=== PATIENT | female | born 1980 | race Caucasian/White ===

== ENCOUNTER 2022-10-01 14:54 | Outpatient (CLI) | payer OTHER, SELFPAY ==
--- NOTE | 2022-10-01 14:40 | CRLHL7_ITS ---
For Patients: As a result of the Cures Act, medical imaging exams and procedure reports are released immediately into your electronic medical record. You may view this report before your referring provider. If you have questions, please contact your health care provider. BILATERAL SCREENING MAMMOGRAM WITH COMPUTER-AIDED DETECTION AND TOMOSYNTHESIS TECHNIQUE: CC and MLO views were obtained. These mammographic images have been obtained using full-field digital technique. These mammographic images were interpreted with the benefit of computer-aided detection. Breast tomosynthesis was used in this interpretation. COMPARISON FILM: None. Baseline study. FINDINGS: The breasts are heterogeneously dense, which may obscure small masses. IMPRESSION: There is no radiographic evidence for malignancy. ASSESSMENT: BI-RADS Category 1: Negative RECOMMENDATION: Routine screening mammogram in 1 year. A lay language report of this examination will be provided to the patient. RAY MARTINEZ M.D. Diagnostic/Nuclear Medicine Radiologist [email or web address] CRYSTAL:clifford Transcribed: 10/02/2022, 3:[address]/Dictated by: Ray Martinez MD @ 10/02/2022 8:10:00 AM (Electronically Signed)
== END 2022-10-01 14:55 | disposition home or self-care (01) ==
LOC: MAMMO 14:56
PROVIDERS: PCP Family Medicine; Visit Provider Nurse Practitioner Family
DX: Z12.31 Encounter for screening mammogram for malignant neoplasm of breast (principal); R92.2 Inconclusive mammogram
CPT/HCPCS: 77063; 77067; T1013

== ENCOUNTER 2023-11-29 08:33 | Outpatient (CLI) | payer OTHER, SELFPAY ==
--- NOTE | 2023-11-29 08:45 | MM_ITS ---
Patient: KENDALL KAYE Facility:?[facility] Patient ID:?[id number] Site Patient ID:?[id number]. Site :?[id number] Study:?XRay-Breast Bilateral 3D-11/29/2023 9:05:34 AM Ordering Physician:[place] Final Report: BILATERAL DIGITAL SCREENING MAMMOGRAM WITH TOMOSYNTHESIS AND COMPUTER-AIDED DETECTION CLINICAL HISTORY: Routine screening exam. COMPARISON: 10/01/2022. TECHNIQUE: Digital mammogram in CC and MLO projections including computer-aided detection (CAD). Tomosynthesis utilized. BREAST COMPOSITION: There are areas of scattered fibroglandular density. FINDINGS: RIGHT Breast: Nodular density is present within the subareolar breast 2 cm from the nipple. Probable cyst. LEFT Breast: No suspicious findings. IMPRESSION: RIGHT breast asymmetry/mass. RECOMMENDATIONS: Additional mammographic views of the RIGHT breast including 3D spot compression CC/MLO. RIGHT breast ultrasound may also be required. BI-RADS Category 0: Incomplete: Need Additional Imaging Evaluation and/or Prior Mammograms for Comparison [facility] will contact the patient for follow-up. A lay language report of this examination will be provided to the patient. Dictated by Dhaval Wong MD @ 11/29/2023 10:46:15 AM jj/Dictated by: Dhaval Wong MD @ 11/29/2023 10:46:00 AM Signed by:?Dhaval Wong MD @11/29/2023 11:40:29 AM (Electronic Signature)
== END 2023-11-29 08:34 | disposition home or self-care (01) ==
LOC: MAMMO 08:35
PROVIDERS: PCP Family Medicine; Visit Provider Physician Assistant
DX: Z12.31 Encounter for screening mammogram for malignant neoplasm of breast (principal); N63.10 Unspecified lump in the right breast, unspecified quadrant
CPT/HCPCS: 77063; 77067

== ENCOUNTER 2023-12-20 08:26 | Outpatient (CLI) | payer OTHER, SELFPAY ==
--- OUTSIDE RECORDS SUMMARY | 2023-12-20 08:33 | XMS_ITS | Continuity of Care Document ---
Author Name Unknown Address [address] [place] [address] Phone [phone] Organization [facility] Address [address] [place] [address] Assessment Encounter Date Assessment Date Assessment LastModified by Organization Details LastModified Time 12/09/2023 12/09/2023 IUD removal [email or web address] Not available 11:33:30 Plan of Treatment Reminders Order Date Submit Date Provider Last Modified By Organization Details Last Modified Time Details Appointments Any 2023 01:30P Parth Curran MD Not available Not available Not available Lab None record ed. Referral gyneco logist referr al - Needs remova l and reinse rtion of IUD; unable to find string s. Transv aginal U/S has been ordere d as well. 2023 024 [email or web address] Not available 12/11/2023 13:03:34 Procedures None record ed. Surgeries None record ed. Imaging US, transv aginal - Need to locate and remove IUD. Unable to find string s 2023 024 [email or web address] Not available 12/17/2023 18:47:59 Medication Orders None record ed. Patient TargetsNo targets recorded. Patient InstructionsNo instructions recorded. Reason for Referral Physical Therapist Referral for Pain of left hip joint 1 month history of atraumatic left hip pain. Worsens with prolonged sitting. Patient is concerned that she has bad posture and uneven leg lengths. Please evaluate and treat. 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 Transvaginal U/S has been ordered as well. Referring Physician: Luanne Harrison, Family Medicine, Encounter Date: 12/09/2023 Problems Name Status Onset Date Resolution Date Notes Provider Name and Address Organization Details Recorded Time History of gestational diabetes mellitus Active 03/06/20 22 Gamaliel Osborne MD [address] [place], [address] , [facility] [employer] [facility] 03/06/2022 20:06:44 Onychomycosis of toenails Active 02/13/20 23 Gamaliel Osborne MD [address] [place], [address] , [facility] [employer] [facility] 02/12/2023 17:35:03 Problem Notes None recorded. Medical Equipment None Reported. Allergies No known drug allergies Medications Name Sig Start Date Stop Date Status Note LastModified by Organization Details LastModified Time ketoconazol e 2 % shampoo 03/06 completed Not Available Not Available Not Available triamcinolo ne acetonide 0.5 % topical cream APPLY A THIN LAYER TO THE AFFECTED AREA(S) BY TOPICAL ROUTE 2 TIMES PER DAY 02/13 completed Not Available Not Available Not Available naproxen 250 mg tablet TAKE ONE TABLET BY MOUTH TWICE A DAY 03/06 completed Not Available Not Available Not Available omeprazole 40 mg capsule,del ayed release TAKE ONE CAPSULE BY MOUTH EVERY DAY NEEDED 02/13 completed Not Available Not Available Not Available terbinafine HCl 250 mg tablet TAKE ONE TABLET BY MOUTH EVERY DAY active Not Available Not Available No t Available hydrocortis one 2.5 % topical cream APPLY A THIN LAYER TO THE AFFECTED AREA(S) BY TOPICAL ROUTE 2 TIMES PER DAY NEEDED 05/08 completed Not Available Not Available Not Available Florajen Acidophilus 20 billion cell capsule TAKE ONE CAPSULE BY MOUTH EVERY DAY DIRECTED active Not Available Not Available No t Available Vitals Date Recorded Body height Body mass index (BMI) Body weight Provider Name and Address Organization Details Last Updated DateTime 12/09/2023 149.86 cm 43.4 kg/m2 76668.36 g ANKUR De La Rosa [address] [place], [address], [facility] 12/09/2023 12:22:44 Social History Question Answer Notes LastModified by Organizat ion Details LastModified Time Are You Currently Employed? Yes [employer] Information not available 05/08/2022 Do You Feel Safe At Home? Yes Information not available 03/06/2022 Sex: Female Functional Status None recorded. Mental Status None recorded. Family History Relationship Description Onset Age of this Age Resolved Age Notes Mother Diabetes mellitus Notes:father of unknown causes (poss heart disease), several siblings have diabetes and high cholesterols Medical History No medical history recorded. Gynecological HistoryNo gynecological history recorded. Obstetrics History GPAL:G 0 P 0 0 0 0 Past Encounters Encounter ID Performer Location Encounter Start Date Encounter Closed Date Diagnosis/Indication Diagnosis SNOMED-CT Code [id number] ANKUR De La Rosa [facility] [address] [place] [address] 12/09/2023 10:29:24 12/09/2023 11:47:51 Family planning surveillance [id number] Surveillan ce of intrauterine device contraception done [id number] 04 Health Concerns Section Related Observation LastModified by Organization Detai ls LastModified Time None Recorded Concern Status LastModified by Organization Details LastModified Time None Recorded Payers Encounter Date Sequence Insurance Name Policy Number Policy Bethea Covered Member ID Bethea Member ID Guarantor Name 12/09/2023 SLIDING FEE SCHEDULE - DISCOUNT Radha Mayers Notes Date Note Type Note Provider Name and Address Organization Details Recorded Time 12/09/2023 text/html HPI Notes: Pt he re today for family planning counseling Has IUD in place currently. Had Mirena IUD inserted in 2013 and needs it removed as it is overdue. She had thought it was good for 10 years. Would like to discuss other BC options Has liked the IUD, has not been experiencing any periods since using it. Has questions about available IUDs, as well as the implant Beside the IUD, has used contraceptive patch Does not want any more children (G3, P3) Did have pap smear through the [facility] At that time, they were unable to locate her IUD strings Is sexually active with 1 partner No vaginal sxs/concerns. Endorses occasional pelvic cramping but nothing significant Is concerned about any BC method that might cause weight gain. LMP: Not having periods 2/2 Mirena IUD Preventative care: - Cervical Ca screenin11/26/2023. - Breast Ca screening: mammogram pending, last done September 2022 ANKUR De La Rosa [address] [place], [address], [facility] 12/09/2023 12:22:56 OBGyn Episode No OBEpisode recorded.
--- OUTSIDE RECORDS SUMMARY | 2023-12-20 08:33 | XMS_ITS | Data Portability ---
Author Name Unknown Address [address] [place] [address] Phone [phone] Organization [place] - Delfino porras [facility] Address [address] [place] [address] [place] [address] Assessment Encounter Date Assessment Date Assessment LastModified by Organization Details LastModified Time 12/09/2023 12/09/2023 IUD removal [email or web address] Not available 11:33:30 Plan of Treatment Reminders Order Date Submit Date Provider Last Modified By Organization Details Last Modified Time Details Appointments Any 30 2023 01:30P Parth Curran MD Not available Not available Not available Lab pap, LB + reflex HR HPV 2021 [facility], [address] [place] [address], [address], 08/08/2022 17:12:15 lipid panel, serum 2021 [facility], [address] [place] [address], [address], 01/02/2023 10:14:27 hemogl obin A1C/he moglob in total, QN, blood 2021 [facility], [address] [place] [address], [address], 01/02/2023 10:13:03 CBC 2021 022 ABRAM Not available 04/23/2022 13:31:23 CMP, serum or plasma 2021 022 ABRAM Not available 04/23/2022 10:40:59 lipid panel, serum 2021 022 ABRAM Not available 05/08/2022 15:56:40 hemogl obin A1C/he moglob in total, QN, blood 2021 022 ABRAM Not available 04/23/2022 13:31:22 Referral gyneco logist referr al - Needs remova l and reinse rtion of IUD; unable to find string s. Transv aginal U/S has been ordere d as well. 2023 024 [email or web address] Not available 12/11/2023 13:03:34 physic al therap ist referr al - 1 month histor y of atraum atic left hip pain. Worsen s with prolon ged francisca castroKerri rees is concer ori that she has bad postur e and uneve n leg length s. Please evalua te and treat. 2020 021 [email or web address] Not available 01/02/2021 12:56:55 Procedures None record ed. Surgeries None record ed. Imaging US, transv aginal - Need to locate and remove IUD. Unable to find string s 2023 024 [email or web address] Not available 12/17/2023 18:47:59 MAMMO, screen ing, bilate ral 2021 022 ABRAM Not available 10/02/2022 17:38:55 Medication Orders terbin afine HCl 250 mg tablet 2022 023 [facility], [address] [place], [address], 02/13/2023 11:31:11 Floraj en Acidop hilus 20 billio n cell capsul e 2022 023 [facility], [address] [place], [address], 02/12/2023 18:52:17 terbin afine HCl 250 mg tablet 2021 022 [facility] [address], [address], 05/08/2022 18:25:48 omepra zole 40 mg capsul e,kash yed releas e [address], [address], 02/13/2023 10:42:20 triamc inolon e aceton sara 0.5 % topica l cream [address], [address], 02/13/2023 10:41:59 omepra zole 40 mg capsul e,kash yed releas e [address], [address], 02/13/2023 10:42:20 terbin afine HCl 250 mg tablet [address], [address], 03/06/2022 18:39:14 naprox en 250 mg tablet [address], [address], 03/06/2022 18:02:00 terbin afine HCl 250 mg tablet 2020 021 mert Not available 01/17/2021 16:57:54 Patient TargetsNo targets recorded. Patient Instructions Encounter Date Encounter Id Patient Instructions Last Modified By Organization Details Last Modified Time 02/12/2023 [id number] take medication for nails for another month and stop, resume if fungus reappears, continue to keep weight down mert Not available 02/13/2023 10:41:21 05/08/2022 [id number] continue to diet and exercise mert Not available 05/08/2022 18:41:56 03/06/2022 [id number] eat three meals a day, try to decr size of meals, avoid fatty foods that agg gall bladder mert Not available 03/06/2022 20:15:12 Reason for Referral Physical Therapist Referral for Pain of left hip joint 1 month history of atraumatic left hip pain. Worsens with prolonged sitting. Patient is concerned that she has bad posture and uneven leg lengths. Please evaluate and treat. 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 Transvaginal U/S has been ordered as well. Referring Physician: Luanne Harrison, Family Medicine, Encounter Date: 12/09/2023 Results Created Date Observation Date Name Description Value Unit Range Abnormal Flag LastModifiedBy Organization Detail LastModifiedTime 05/08/2022 lipid panel , serum cholesterol 156 normal Not Available Not Available 05/08/2022 15:56:40 05/08/2022 lipid panel , serum triglyceride s 71 normal Not Available Not Available 15:56:40 05/08/2022 lipid panel , serum HDL 60 normal Not Available Not Available 04/11 15:56:40 05/08/2022 lipid panel , serum LDL 82 normal Not Available Not Available 04/11 15:56:40 05/08/2022 CBC cholesterol 156 normal Not Avai lable Not Available 04/23/2022 13:31:23 05/08/2022 CBC triglyceride s 71 normal Not Available Not Available 13:31:23 05/08/2022 CBC HDL 60 normal Not Available Not Available 04/23/2022 13:31:23 05/08/2022 CBC LDL 82 normal Not Available Not Available 04/23/2022 13:31:23 05/08/2022 CMP, serum or plasm a cholesterol 156 normal Not Available Not Available 04/23/2022 13:31:23 05/08/2022 CMP, serum or plasm a triglyceride s 71 normal Not Available Not Available 13:31:23 05/08/2022 CMP, serum or plasm a HDL 60 normal Not Available Not Available 04/09 13:31:23 05/08/2022 CMP, serum or plasm a LDL 82 normal Not Available Not Available 04/09 13:31:23 05/08/2022 hemog lobin A1C/h emogl obin total , QN, blood cholesterol 156 normal Not Available Not Available 04/23/2022 11:22:32 05/08/2022 hemog lobin A1C/h emogl obin total , QN, blood triglyceride s 71 normal Not Available Not Available 11:22:32 05/08/2022 hemog lobin A1C/h emogl obin total , QN, blood HDL 60 normal Not Available Not Available 04/09 11:22:32 05/08/2022 hemog lobin A1C/h emogl obin total , QN, blood LDL 82 normal Not Available Not Available 04/09 11:22:32 01/02/20 23 01/01/2023 lipid panel , serum hemoglobin A1C 5.35 Not Available [address], [address], 01/02/2023 10:14:27 01/02/20 23 01/01/2023 lipid panel , serum total cholesterol 166 Not Available [address], [address], 01/02/2023 10:14:27 01/02/20 23 01/01/2023 lipid panel , serum triglyceride s 59 Not Available [address], [address], 01/02/2023 10:14:27 01/02/20 23 01/01/2023 lipid panel , serum HDL 89 Not Available [address], [address], 01/02/2023 10:14:27 01/02/20 23 01/01/2023 lipid panel , serum LDL 65 Not Available [address] [place], [address], 01/02/2023 10:14:27 01/02/20 23 01/01/2023 hemog lobin A1C/h emogl obin total , QN, blood hemoglobin A1C 5.35 Not Available [address], [address], 01/01/2023 18:10:02 01/02/20 23 01/01/2023 hemog lobin A1C/h emogl obin total , QN, blood total cholesterol 166 Not Available [address], [address], 01/01/2023 18:10:02 01/02/20 23 01/01/2023 hemog lobin A1C/h emogl obin total , QN, blood triglyceride s 59 Not Available [address], [address], 01/01/2023 18:10:02 01/02/20 23 01/01/2023 hemog lobin A1C/h emogl obin total , QN, blood HDL 89 Not Available [facility] [address] [place] [address], [address], 01/01/2023 18:10:02 01/02/20 23 01/01/2023 hemog lobin A1C/h emogl obin total , QN, blood LDL 65 Not Available [facility] [address] [place] [address], [address], 01/01/2023 18:10:02 10/02/19 23 10/01/2022 MAMMgladis Lynne bilat eral No observ ation record ed. [facility] Radiology Department [address] [place], [address], 10/04/2022 09:06:59 Result Notes None recorded. Problems Name Status Onset Date Resolution Date Notes Provider Name and Address Organization Details Recorded Time History of gestational diabetes mellitus Active 03/06/20 22 Gamaliel Osborne MD [address] [place], [address] , [facility] 03/06/2022 20:06:44 Onychomycosis of toenails Active 02/13/20 23 Gamaliel Osborne MD [address] [place], [address] , [facility] 02/12/2023 17:35:03 Problem Notes None recorded. Procedures Surgical History None recorded. Imaging Results Imaging Date Name Status LastModified by Organiz ation Details LastModified Time 10/01/2022 MAMMO, screening, bilateral completed [facility] Radiology Department [address] [place], [address], 10/04/2022 09:06:59 Procedure Notes None recorded. Medical Equipment None Reported. [...] No t Available Vitals Date Recorded Body weight Body mass index (BMI) Body height Provider Name and Address Organization Details Last Updated DateTime 01/02/2021 94474.47 g 40.4 kg/m2 149.86 cm Soniaaamir Fernandez NP [address] [place], [address], [facility] 01/02/2021 12:21:38 Date Recorded Body weight Systolic blood pressure Diastolic blood pressure Provider Name and Address Organization Details Last Updated DateTime 03/06/2022 59860.44 g 125 mm[Hg] 79 mm[Hg] Gamaliel Osborne MD [address] [place], [address], [facility] 03/06/2022 20:05:49 Date Recorded Body weight Provider Name an d Address Organization Details Last Updated DateTime 05/08/2022 93116.47 g Parth Sigala [address] [place], [address] 05/08/2022 18:30:39 Date Recorded Body height Body mass index (BMI) Body weight Body temperature Systolic blood pressure Diastolic blood pressure Provider Name and Address Organization Details Last Updated DateTime 2 149.86 cm 39.4 kg/m2 93847.5 1 g 98.2 [degF] 105 mm[Hg] 60 mm[Hg] [facility] 2 10:11:41 Date Recorded Body height Body mass index (BMI) Body weight Heart rate Systolic blood pressure Diastolic blood pressure Provider Name and Address Organization Details Last Updated DateTime 3 149.86 cm 39.4 kg/m2 78284.1 5 g 55 /min 112 mm[Hg] 59 mm[Hg] Jenifer [facility] 3 18:26:16 Date Recorded Body height Body mass index (BMI) Body weight Provider Name and Address Organization Details Last Updated DateTime 12/09/2023 149.86 cm 43.4 kg/m2 92511.36 g ANKUR De La Rosa [address] [place], [address], [facility] 12/09/2023 12:22:44 Social History Question Answer Notes [...] Encounter Closed Date Diagnosis/Indication Diagnosis SNOMED-CT Code [id number] Sonia Fernandez NP [facility] [address] [place] [address] 01/02/2021 10:44:12 01/02/2021 17:31:37 Pain of left hip joint 9523179095236 00 [id number] Gamaliel Osborne MD [facility] [address] [place] [address] 01/16/2021 15:27:49 01/16/2021 17:53:33 Muscle pain 30839784 63218 Gamaliel Osborne MD [facility] [address] [place] [address] 03/06/2022 17:38:59 03/06/2022 18:43:13 Onychomycosis of toenails 893220190 Renewal of prescription 662054480 Prediabetes 360827661 09089 Gamaliel Osborne MD [facility] [address] [address] 05/08/2022 17:08:41 05/08/2022 18:05:17 Localized eruption of skin 786583150 Renewal of prescription 734891242 Onychomyco sis of toenails 236085069 76993 [facility] [address] [place] [address] 07/05/2022 10:02:39 07/05/2022 11:18:01 Adult health examination 492655635 Gynecologi c examination 34158566 Uterine prolapse 9561934 5 [place] sp ots of vulva 878183957 Screening mammography 24 430771 36592 Gamaliel Osborne MD [facility] [address] [place] [address] 02/12/2023 18:18:44 02/12/2023 18:51:40 History of gestational diabetes mellitus 464989615 Onychomyco sis of toenails 455912722 Localized eruption of skin 881844821 13272 ANKUR De La Rosa [facility] [address] [place] [address] 12/09/2023 10:29:24 12/09/2023 11:47:51 Family planning surveillance 450971346 Surveillan ce of intrauterine device contraception done [id number] 04 Health Concerns Section Related Observation LastModified by Organization Detai ls LastModified Time None Recorded Concern Status LastModified by Organization Details LastModified Time None Recorded Advance Directives Directive None Recorded Payers Encounter Date Sequence Insurance Name Policy Number Policy Bethea Covered Member ID Bethea Member ID Guarantor Name 12/09/2023 SLIDING FEE SCHEDULE - DISCOUNT Radha Mayers 02/12/2023 SLIDING FEE SCHEDULE - DISCOUNT Radha Mayers 07/05/2022 [employer] SCREENING PROGRAM - [place] [employer] Radha Mayers [id number] Radha Mayers 05/08/2022 SLIDING FEE SCHEDULE - DISCOUNT Radha Mayers 03/06/2022 SLIDING FEE SCHEDULE - DISCOUNT Radha Mayers 01/16/2021 SLIDING FEE SCHEDULE - DISCOUNT Radha Mayers 01/02/2021 SLIDING FEE SCHEDULE - DISCOUNT Radha Mayers Notes Date Note Type Note Provider Name and Address Organization Details Recorded Time 01/02/2021 text/html HPI Notes: Hip(s ) Reported by patient. Location: left Severity: pain level 7/10; Pain comes and goes. Pain is better with exertion. Duration: date of onset:; 1 months Timing: abrupt; Began at left knee; when she sits for a long time, feels like she doesn't have any strength in her left side after prolonged sitting. Has some days without pain; taking Advil 1-2x/week. Context: cannot identify; atraumatic Alleviating Factors: NSAIDs Aggravating Factors: Inactivity. Associated Symptoms: no swelling; no redness; no warmth; no ecchymosis; no fever; no chills Phone visit (patient unable to come in person). CC today is deep pain in left hip x 1 month. Foreign [employer] interpreting via [employer]. 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 Has been able to work despite pain; in fact, pain is better when she is active. Pain doesn't interfere with sleep. Sometimes has right arm pain that makes it hard to sleep. No fevers, chills, no redness or swelling of joint. Sometimes will feel a little warm. Trend of pain is stable; not worsening or improving. Pain is worse when sitting down for a long time. Not worse when waking up. Stairs are easy. Weight has been stable for the past year. She reports being quite active: likes walking. Pain has not prevented from her from exercising. Feels otherwise healthy. Sonia Fernandez NP [address] [place], [address], [facility] [employer] 01/02/2021 13:24:47 01/16/2021 text/html HPI Notes: sever al days of aching in right arm below elbow and fingers, using a NSAID from [place] and improving Gamaliel Osborne MD [address] [place], [address], [facility] [employer] 01/16/2021 18:06:08 07/05/2022 text/html HPI Notes: 41 y. o. F presents for [facility] visit Last mammogram date and result: Has never had Personal history of breast issues or concerns: Right breast pain above right breast like a bite. Current Breast ROS: denies breast lumps, nipple discharge/itching, rash, change in appearance Family history of breast or ovarian cancer-no Breast self awareness discussed Last pap date/result: Unsure of date History of abnormal pap smears: No Gynecologic history: LMP: Does not have Gynecologic ROS: denies vaginal discharge, itching, odor, irritation, pelvic pain, abnormal bleeding, but does not external bumps and something internally. Contraception: +Mirena IUD , 2 casearas She has been losing wt with rylie, basketball, and gym use. Denies depressive or anxiety symptoms. DARCI POZO-BC [address] [place], [address], [facility] [employer] 07/05/2022 13:47:10 12/09/2023 text/html HPI Notes: Pt he re [...] [facility] Program at the [facility] [place] At that time, they were unable to [...] September 2022 ANKUR De La Rosa [address] [place], [address], [facility] 12/09/2023 12:22:56 OBGyn Episode No OBEpisode recorded.
--- NOTE | 2023-12-20 08:45 | MM_ITS ---
Patient: KENDALL KAYE Facility:?[facility] Patient ID:?[id number] Site Patient ID:?[id number] Site :?[id number] Study:?XRay-Breast Right 3D-12/20/2023 9:32:55 AM Ordering Physician:[place] Final Report: DIGITAL DIAGNOSTIC RIGHT MAMMOGRAM USING TOMOSYNTHESIS AND COMPUTER-AIDED DETECTION RIGHT BREAST ULTRASOUND CLINICAL HISTORY: RIGHT breast mass/asymmetry. COMPARISON: 11/29/2023, 10/01/2022. TECHNIQUE: Digital RIGHT mammogram in two projections. Tomosynthesis and CAD utilized. Real-time ultrasound imaging of RIGHT breast with imaging documentation. BREAST COMPOSITION: There are areas of scattered fibroglandular density. FINDINGS: 3D spot compression CC/MLO RIGHT breast mammogram images submitted. Persistent nodular density adjacent to the RIGHT nipple. No architectural distortion. No suspicious calcifications. Targeted RIGHT breast ultrasound performed at 2 o`clock 2 cm from the nipple. In this location, there is a circumscribed anechoic simple cyst measuring 15 x 9 x 14 millimeters. IMPRESSION: Benign cyst RIGHT breast 2 o`clock 2 cm from the nipple measuring 1.5 cm. No suspicious findings. No evidence of malignancy. RECOMMENDATIONS: Annual BILATERAL screening mammography. Results and recommendations discussed with the patient through an multigraph operator. BI-RADS Category 2: Benign A lay language report of this examination will be provided to the patient. Dictated by Dhaval oWng MD @ 12/20/2023 9:47:21 AM jj/Dictated by: Dhaval Wong MD @ 12/20/2023 9:47:00 AM Signed by:?Dhaval Wong MD @12/20/2023 11:05:18 AM (Electronic Signature)
--- NOTE | 2023-12-20 09:15 | US_ITS ---
Patient: KENDALL KAYE Facility:?[facility] Patient ID:?[id number] Site Patient ID:?[id number] Site :?1980 Study:?US-Breast Right DR PIMENTEL TO READ-12/20/2023 9:15:23 AM Ordering Physician:?WOOD BOLAND Final Report: PLEASE SEE DIGITAL DIAGNOSTIC RIGHT MAMMOGRAM PERFORMED SAME DAY CRL:alanis thapa/Dictated by: Dhaval Pimentel MD @ 12/20/2023 9:47:00 AM Signed by:?Dhaval Pimentel MD @12/20/2023 11:05:17 AM (Electronic Signature)
== END 2023-12-20 08:27 | disposition home or self-care (01) ==
PROVIDERS: PCP Family Medicine; Visit Provider Physician Assistant
DX: N63.10 Unspecified lump in the right breast, unspecified quadrant (principal); N60.01 Solitary cyst of right breast; R92.8 Other abnormal and inconclusive findings on diagnostic imaging of breast
CPT/HCPCS: 76642; 77065; T1013; G0279

== ENCOUNTER 2023-12-25 14:59 | Outpatient (CLI) | payer SELFPAY ==
--- NOTE | 2023-12-25 15:00 | US_ITS ---
Patient: KENDALL KAYE Facility:?[facility] Patient ID:?[id number] Site Patient ID:?[id number]. Site :?1980 Study:?US-Pelvis PELVIS TV-12/25/2023 3:34:55 PM Ordering Physician:PRISCILLA FERGUSON NP Final Report: CLINICAL HISTORY: IUD check TECHNIQUE: 2D norwood scale and color Doppler images were acquired of the pelvis using a transvaginal approach. FINDINGS: On transvaginal imaging, the myometrium has a normal uniform echotexture. Intrauterine device is present in good position within the endometrial canal. Uterus measures 8.9 x 4.4 x 5.9 cm. The left ovary measures 2.6 x 1.7 x 2.4 cm in size and the right ovary measures 3.3 x 2.5 x 2.3 cm. The ovaries demonstrate normal arterial and venous blood flow on color Doppler analysis. There are no suspicious fluid collections within the cul-de-sac. IMPRESSION: Normal position of the IUD within the endometrial canal. Dictated by Dhaval Wong MD @ 12/26/2023 9:52:41 AM Signed by:?Dhaval Wong MD @12/26/2023 9:52:41 AM (Electronic Signature)
== END 2023-12-25 15:00 | disposition home or self-care (01) ==
LOC: US 15:00
PROVIDERS: PCP Family Medicine; Visit Provider Nurse Practitioner Family
DX: Z30.431 Encounter for routine checking of intrauterine contraceptive device (principal)
CPT/HCPCS: 76830; T1013

== ENCOUNTER 2025-03-26 07:39 | Outpatient (CLI) | payer MEDICAID, SELFPAY ==
--- NOTE | 2025-03-26 07:45 | CRLHL7_ITS ---
For Patients: As a result of the Century Cures Act, medical imaging exams and procedure reports are released immediately into your electronic medical record. You may view this report before your referring provider. If you have questions, please contact your health care provider. DIGITAL DIAGNOSTIC BILATERAL MAMMOGRAM USING TOMOSYNTHESIS AND COMPUTER-AIDED DETECTION LEFT BREAST ULTRASOUND CLINICAL HISTORY: LEFT breast lump. COMPARISON: 10/01/2022, 12/20/2023, 11/29/2023. TECHNIQUE: Digital BILATERAL mammogram in four projections with computer-aided detection. Tomosynthesis was used in this interpretation. Real-time ultrasound imaging of LEFT breast with imaging documentation. Scanning was performed by both the technologist and the radiologist. BREAST COMPOSITION: The breasts are heterogeneously dense, which may obscure small masses. FINDINGS: 3D CC/MLO BILATERAL mammogram images submitted. Irregular mass in the upper outer quadrant is present corresponding to the area of palpable concern. Stable cyst within the retroareolar RIGHT breast. Targeted LEFT breast ultrasound performed. In this location, there is an irregular solid hypoechoic mass at 2 o`clock 6 cm from the nipple which measures 3.0 x 2.3 x 3.6 cm. Prominent LEFT axillary lymph node is present with the cortex measuring 4.2 millimeters. This lymph node measures 1.4 x 1.1 x 2.0 cm. IMPRESSION: Suspicious mass LEFT breast 2 o`clock 6 cm from the nipple measuring 3.0 x 2.3 x 3.6 cm. Suspicious LEFT axillary lymph node measuring 1.4 x 1.1 x 2.0 cm. RECOMMENDATIONS: Ultrasound-guided biopsy of the LEFT breast mass and LEFT axillary lymph node. A lay language report of this examination will be provided to the patient. BI-RADS Category 4: Suspicious Dictated by Dhaval Wong MD @ 03/26/2025 9:18:25 AM jj/Dictated by: Dhaval Wong MD @ 03/26/2025 9:18:00 AM (Electronically Signed)
--- NOTE | 2025-03-26 08:15 | CRLHL7_ITS ---
For Patients: As a result of the Cures Act, medical imaging exams and procedure reports are released immediately into your electronic medical record. You may view this report before your referring provider. If you have questions, please contact your health care provider. SEE DIGITAL DIAGNOSTIC BILATERAL MAMMOGRAM PERFORMED SAME DAY CRL:alanis thapa/Dictated by: Dhaval Wong MD @ 03/26/2025 9:18:00 AM (Electronically Signed)
== END 2025-03-26 07:40 | disposition home or self-care (01) ==
LOC: MAMMO 07:40
PROVIDERS: PCP Family Medicine; Visit Provider Physician Assistant
DX: N63.20 Unspecified lump in the left breast, unspecified quadrant (principal); R92.333 Mammographic heterogeneous density, bilateral breasts; R59.0 Localized enlarged lymph nodes
CPT/HCPCS: 76642; 77066; T1013; G0279

== ENCOUNTER 2025-04-07 11:06 | Outpatient (CLI) | payer MEDICAID, SELFPAY ==
--- NOTE | 2025-04-07 11:15 | CRLHL7_ITS ---
For Patients: As a result of the Century Cures Act, medical imaging exams and procedure reports are released immediately into your electronic medical record. You may view this report before your referring provider. If you have questions, please contact your health care provider. ULTRASOUND-GUIDED LEFT AXILLARY LYMPH NODE BIOPSY AND BIOPSY MARKER PLACEMENT INDICATION: LEFT breast mass. Abnormal-appearing LEFT axillary lymph node. Ultrasound-guided biopsy and clip placement ordered. FINDINGS: Informed consent was obtained through the aid of a Persian-speaking retail business analyst. Benefits and risks were discussed. Risks included pain, bleeding, infection, and the possibility of an unsuccessful or nondiagnostic procedure. A post procedure clip placement and a post procedure mammogram were also discussed with the patient. The patient agreed to proceed. [place] protocol was followed. TIME-OUT conducted just prior to starting procedure confirmed patient identity, site/side, procedure, patient position, and availability of correct equipment. Pause for cause was performed. Utilizing sterile technique and 1 percent lidocaine for local anesthetic, an 18-gauge Temno biopsy needle was advanced into the LEFT axillary lymph node which demonstrates a slightly thickened minimally irregular cortex. Five passes were made with an 18-gauge Temno needle. The patient tolerated the biopsy well. No immediate complications. A HydroMARK clip was placed into the lymph node at the edge of the cortex. A post procedure mammogram was performed demonstrating the clip at the periphery of this lymph node. IMPRESSION: Technically successful ultrasound-guided biopsy of a LEFT axillary lymph node. Final pathology is pending. ACR not applicable Dictated by: Parth Holbrook MD @04/07/2025 12:37:39 PM jj/Dictated by: Parth Holbrook MD @ 04/07/2025 12:37:00 PM (Electronically Signed)
--- NOTE | 2025-04-07 11:15 | CRLHL7_ITS ---
For Patients: As a result of the Century Cures Act, medical imaging exams and procedure reports are released immediately into your electronic medical record. You may view this report before your referring provider. If you have questions, please contact your health care provider. ULTRASOUND-GUIDED LEFT BREAST BIOPSY AND POST-BIOPSY MAMMOGRAM FOR CLIP PLACEMENT INDICATION: Palpable solid LEFT breast mass 2 o`clock position 6 cm from the nipple measuring 3.0 x 2.3 x 3.6 cm. Ultrasound-guided biopsy, clip placement, and postprocedure mammogram ordered. FINDINGS: Informed consent was obtained through the aid of a Mongolian-speaking agriculture consultant. The benefits and risks of the procedure were discussed. The risks included pain, bleeding, infection, and the possibility of an unsuccessful or nondiagnostic procedure. The placement of a post biopsy clip and a postprocedure mammogram were also discussed. The patient agreed to proceed. [place] protocol was followed. TIME-OUT conducted just prior to starting procedure confirmed patient identity, site/side, procedure, patient position, and availability of correct equipment. Pause for cause was performed. Utilizing sterile technique and 1 percent lidocaine for local anesthetic, a 14-gauge Bard biopsy gun was advanced into the lesion at the 2 o`clock position 6 cm from the nipple. Five cores were obtained without significant complication (the patient experienced some pain with the first 2 biopsies). A postprocedure clip was placed. The postprocedure mammogram demonstrates the clip within the periphery of the biopsied mass. IMPRESSION: Technically successful ultrasound-guided biopsy and clip placement in the left breast mass at 2 o`clock position 6 cm from the nipple. The final pathology is pending. ACR not applicable Dictated by: Parth Holbrook MD @04/07/2025 12:34:37 PM alanis/Dictated by: Parth Holbrook MD @ 04/07/2025 12:34:00 PM (Electronically Signed)
--- NOTE | 2025-04-07 11:50 | CRLHL7_ITS ---
For Patients: As a result of the Cures Act, medical imaging exams and procedure reports are released immediately into your electronic medical record. You may view this report before your referring provider. If you have questions, please contact your health care provider. SEE ULTRASOUND-GUIDED LEFT BREAST BIOPSY AND ULTRASOUND-GUIDED LEFT AXILLARY LYMPH NODE BIOPSY PERFORMED SAME DAY CRL:alanis thapa/Dictated by: Parth Holbrook MD @ 04/07/2025 12:38:00 PM (Electronically Signed)
== END 2025-04-07 11:07 | disposition home or self-care (01) ==
LOC: US 11:08
PROVIDERS: PCP Family Medicine; Visit Provider Physician Assistant
DX: N63.20 Unspecified lump in the left breast, unspecified quadrant (principal); C50.912 Malignant neoplasm of unspecified site of left female breast; R92.8 Other abnormal and inconclusive findings on diagnostic imaging of breast
CPT/HCPCS: 19083; 38505; 76942; 77065; 88305; 88360; 88361; 88377; T1013; A4648; A4649

== ENCOUNTER 2025-05-03 07:51 | Day surgery (SDC) | payer MEDICAID, SELFPAY ==
--- NOTE | 2025-05-03 | CRLHL7_ITS ---
For Patients: As a result of the Century Cures Act, medical imaging exams and procedure reports are released immediately into your electronic medical record. You may view this report before your referring provider. If you have questions, please contact your health care provider. LEFT AXILLARY LYMPH NODE WIRE LOCALIZATION USING ULTRASOUND GUIDANCE CLINICAL HISTORY: Enlarged left axillary lymph node, previously biopsied and negative, large primary left breast cancer, surgical excursion LATERALITY: Left axilla LESION: Enlarged left axillary lymph node with HydroMARK clip. LOCALIZATION WIRE: [place] hookwire. TECHNIQUE: The localization wire was placed using real-time ultrasound guidance with image documentation. Cranial-caudal and medial-lateral digital mammograms were obtained after localization wire placement. CONSENT and TIME OUT: The procedure, risks, and alternatives were explained to the patient and a consent was signed. [place] Protocol was followed including pre-procedure verification that relevant information/documentation was available, reviewed and properly matched to the patient; consent accurate and complete; and equipment and supplies available. Time Out was conducted just prior to starting procedure to verify the four required elements: patient identity, correct side/site marked (if applicable), procedure, relevant images/results properly labeled and displayed (if applicable). PROCEDURE: The skin was prepped with ChloraPrep and 5 cc of 1% lidocaine was injected for local anesthesia. The localization wire was placed within or near the targeted left axillary lymph node lesion using ultrasound guidance. The patient tolerated the procedure well. PROXIMITY OF WIRE TO LESION: The wire is present within the previously biopsied left axillary lymph node adjacent to the HydroMARK clip. IMPRESSION: Successful left axillary lymph node wire localization. ACR not applicable Dictated by Dhaval Wong MD @ 05/03/2025 10:54:05 AM (Electronically Signed)
[2025-05-03 08:15] VITALS: BMI 42.0
[2025-05-03 08:17] VITALS: BP 136/77; PULSE 59; RESP 20; TEMP 36.8; O2SAT 97
[2025-05-03 08:19] LABS: Ur HCG Qualitative* Negative (Negative)
[2025-05-03] MEDS: LACTATED RINGERS 1000 ML 1,000 ML 100 ML IV (08:30)
[2025-05-03] MEDS: SODIUM CHLORIDE 0.9 % (FLUSH) 10 ML SYRINGE IVF (08:32)
--- NOTE | 2025-05-03 09:00 | CRLHL7_ITS ---
For Patients: As a result of the Century Cures Act, medical imaging exams and procedure reports are released immediately into your electronic medical record. You may view this report before your referring provider. If you have questions, please contact your health care provider. INDICATION: Left-sided breast carcinoma presenting for sentinel node evaluation prior to surgery. TECHNIQUE: [place] lymph node study performed after the intradermal injection of 1.01 mCi in 0.5 mL of Tc-99m Filtered sulfur colloid injected into left breast FINDINGS: The procedure and its risks were explained in detail to the patient including but not limited to the risk of bleeding, infection, and a nondiagnostic procedure. The patient understood the procedure and its risks and elected to proceed. [place] protocol was followed and the Time Out procedure was performed. Then, using sterile technique and local anesthesia, an intradermal injection of 1.01 mCi in 0.5 mL of Tc-99m Filtered sulfur colloid injected into left breast. No complications. Dictated by Dhaval Wong MD @ 05/03/2025 10:05:35 AM (Electronically Signed)
--- NOTE | 2025-05-03 09:15 | CRLHL7_ITS ---
For Patients: As a result of the Century Cures Act, medical imaging exams and procedure reports are released immediately into your electronic medical record. You may view this report before your referring provider. If you have questions, please contact your health care provider. BREAST WIRE LOCALIZATION USING ULTRASOUND GUIDANCE CLINICAL HISTORY: Left breast cancer LATERALITY: Left LESION: Large solid hypoechoic lesion containing an oval clip. LOCALIZATION WIRE: Kopans hookwire. TECHNIQUE: The localization wire was placed using real-time ultrasound guidance with image documentation. Cranial-caudal and medial-lateral digital mammograms were obtained after localization wire placement. CONSENT and TIME OUT: The procedure, risks, and alternatives were explained to the patient and a consent was signed. [place] Protocol was followed including pre-procedure verification that relevant information/documentation was available, reviewed and properly matched to the patient; consent accurate and complete; and equipment and supplies available. Time Out was conducted just prior to starting procedure to verify the four required elements: patient identity, correct side/site marked (if applicable), procedure, relevant images/results properly labeled and displayed (if applicable). PROCEDURE: The skin was prepped with ChloraPrep and 5 cc of 1% lidocaine was injected for local anesthesia. The localization wire was placed within or near the targeted breast lesion using ultrasound guidance. The patient tolerated the procedure well. PROXIMITY OF WIRE TO LESION: The wire is located in the lesion adjacent to the clip. IMPRESSION: Successful breast wire localization. ACR not applicable Dictated by Dhaval Wong MD @ 05/03/2025 10:40:52 AM (Electronically Signed)
--- NOTE | 2025-05-03 09:26 | P.GSOP_ITS ---
Operative Note Date of procedure: 05/03/25 Pre-op diagnosis: Left breast invasive ductal carcinoma, ER/CO positive, HER2 negative Post-op diagnosis: Same Type of Procedure: 1. Left lumpectomy with preoperative wire localization 2. Left axillary sentinel lymph node biopsy 3. Biopsy with wire localization of left axillary lymph node Indications: The patient is a 44-year-old female who was found to have a left breast lump on self-breast exam. Workup revealed a 3 cm mass at 2 o'clock. biopsy showed a grade 3 invasive ductal carcinoma, hormone positive, HER2 negative. Biopsy of a suspicious left axillary lymph node was negative. After discussion of management options, she elected to proceed with lumpectomy and sentinel lymph node biopsy. Procedure Description: After discussion of risks and benefits, the patient's left breast and axilla were marked. One hour prior to the incision, I injected 1.01 mCi of technetium 99 filtered sulfur colloid into the dermis above the right areola. This was then massaged to promote lymphatic drainage for 5 min. She was brought to the operating room and placed supine on the operating table. General anesthesia was induced. Ten min prior to the incision, I injected 3 mL Isosulfan blue dye into the same location. This was then massaged for 5 min. Once this was completed, the area was prepped and draped sterilely. A time-out was then completed. We began on the left. The tumor was palpable. I injected local anesthetic in the skin and subcutaneous tissue overlying the mass. I then created an elliptical incision overlying the tumor and took dissection down into the subcutaneous fat and breast tissue around the mass. This was taken down to the chest wall. The mass was then excised, the wire noted to be solidly within the mass and inked for orientation. It was then sent to mammography. This showed the wire and clip within the specimen. It was then sent to pathology for gross margins. These were grossly negative with the closest being superior at 0.5 cm. Attention was then turned to the sentinel lymph node biopsy. The probe was brought into the field. A strong signal was noted in the axilla. The patient had moderate amount of axillary breast tissue. Below this was the location of the wire localizing the lymph node that was biopsied preoperatively. Her axillary hairline was just above this fatty tissue. I elected to create my incision in the between at the usual location just below the axillary hairline. Local anesthetic was injected and an incision was created. Dissection was taken down through the subcutaneous fat I continued through the clavipectoral fascia and was able to dissect out the wire. This was grasped and pulled through the incision. I then traced this down to a palpable node. The node was noted to be blue. This was dissected out circumferentially. It was measured ex vivo and found to have a signal of greater than 2000. The probe was then placed back into the axilla. There was additional signal. I then identified 3 additional nodes, all carefully dissected out from the surrounding axillary fat. Ex vivo, signal ranged from 100-700. None of these nodes were blue. The probe was then placed back into the axilla after excision of the 4th node and no additional signal was noted. There were no additional blue nodes or blue lymphatic channels. There were no additional suspicious nodes. Hemostasis in the axilla appeared excellent. The nodes were sent for x-ray which did show a biopsy clip contained within. They were then sent in formalin to pathology. Rola was placed in the axillary bed given the depth of the wound and large surface area. This wound was closed with 3-0 Vicryl dermal 4-0 Monocryl subcuticular suture. The lumpectomy cavity was again examined. Hemostasis appeared excellent. Clips were placed for marking for radiation therapy. The wound was then closed with 3-0 Vicryl and 4-0 Monocryl subcuticular suture. Sterile dressings were applied to both incisions. A pressure dressing was then applied. The patient was then woken and transported to the recovery area in stable condition. ? The patient tolerated the procedure well. Findings: 1. Clip noted in lumpectomy specimen 2. Lumpectomy margins grossly negative 3. Clips noted in axillary lymph node specimen Surgeon: Yolanda Mac MD Estimated blood loss (mL): 10 Specimen: Other Additional Specimen Information: A. left breast lumpectomy B. Left axillary sentinel lymph nodes Condition: stable Disposition: same day [place] Node Biopsy for Breast Cancer Operation Performed with Curative Intent: Yes Tracers used to Identify sentinel nodes in the upfront surgery (non-neoadjuvant) setting: Dye and Radioactive Tracer Tracers used to identify sentinel nodes in the neoadjuvant setting: N/A All nodes (colored or non-colored) present at the end of a dye filled lymphatic channel were removed: Yes All significantly radioactive nodes were removed: Yes All palpably suspicious nodes were removed: Yes Biopsy proven positive nodes marked with clips prior to chemotherapy were identified and removed: Not Applicable
--- NOTE | 2025-05-03 09:26 | W.PM.H&PU ---
History & Physical Update History & Physical Update H&P Reviewed and patient assessed: No changes noted
[2025-05-03] MEDS: ACETAMINOPHEN 325 MG TABLET 650 MG PO (09:35)
--- NOTE | 2025-05-03 09:45 | CRLHL7_ITS ---
For Patients: As a result of the Cures Act, medical imaging exams and procedure reports are released immediately into your electronic medical record. You may view this report before your referring provider. If you have questions, please contact your health care provider. SEE LEFT BREAST AND LEFT AXILLARY LYMPH NODE WIRE LOCALIZATION PERFORMED SAME DAY CRL:alanis thapa/Dictated by: Dhaval Wong MD @ 05/03/2025 10:37:00 AM (Electronically Signed)
--- NOTE | 2025-05-03 10:49 | P.ANES_ITS ---
Anesthesia Charges Start Date/Time Anesthesia Start Date: 05/03/25 Anesthesia Start Time: 11:56 Stop Date/Time Anesthesia Stop Date: 05/03/25 Anesthesia Stop Time: 13:51 Coding CPT Codes CPT Codes: ANESTH SURGERY OF SHOULDER - 60312 ([id number]) P3 - PATIENT W/SEVERE SYS DISEASE, QK - OUTSIDE PLANT TECHNICIAN 2-4 CNCRNT ANES PROC, QX - OFFICE SERVICES REPRESENTATIVE SVC W/ MD MED DIRECTION
--- NOTE | 2025-05-03 10:49 | W.ANESCHARGE ---
Anesthesia Charges Start Date/Time Anesthesia Start Date: 05/03/25 Anesthesia Start Time: 11:56 Stop Date/Time Anesthesia Stop Date: 05/03/25 Anesthesia Stop Time: 13:51 Coding CPT Codes CPT Codes: ANESTH SURGERY OF SHOULDER - 41593 ([id number]) P3 - PATIENT W/SEVERE SYS DISEASE, QK - LEATHER CARVER 2-4 CNCRNT ANES PROC, QX - INTERIOR DESIGN TEACHER SVC W/ MD MED DIRECTION
--- NOTE | 2025-05-03 11:28 | CRLHL7_ITS ---
For Patients: As a result of the Cures Act, medical imaging exams and procedure reports are released immediately into your electronic medical record. You may view this report before your referring provider. If you have questions, please contact your health care provider. CLINICAL HISTORY: Left breast cancer. Indeterminate left axillary lymph node. COMPARISON: 04/07/2025 FINDINGS: Two views of the left axillary specimen demonstrate the previously biopsied lymph node along with the biopsy clip and localization wire. IMPRESSION: Specimen contains the lymph node, biopsy clip and localization wire. ACR not applicable. Dictated by Dhaval Wong MD @ 05/03/2025 3:18:04 PM (Electronically Signed)
--- NOTE | 2025-05-03 11:45 | CRLHL7_ITS ---
For Patients: As a result of the Cures Act, medical imaging exams and procedure reports are released immediately into your electronic medical record. You may view this report before your referring provider. If you have questions, please contact your health care provider. LEFT BREAST SPECIMEN RADIOGRAPH CLINICAL HISTORY: LEFT breast cancer. COMPARISON: 04/07/2025. FINDINGS: Two views of the LEFT breast specimen submitted. The specimen contains the biopsy clip, the biopsied mass and localization wire. IMPRESSION: Specimen contains the biopsied mass, biopsy clip and localization wire. ACR not applicable Dictated by Dhaval Wong MD @ 05/03/2025 1:06:55 PM jj/Dictated by: Dhaval Wong MD @ 05/03/2025 1:06:00 PM (Electronically Signed)
[2025-05-03] MEDS: ISOSULFAN BLUE 5 ML VIAL 3 ML INJECTION (12:08)
[2025-05-03] MEDS: BUPIVACAINE 0.25% 30 ML 10 ML INJECTION (12:14)
[2025-05-03] MEDS: LIDOCAINE 1% MDV 10 ML INJECTION (12:14)
[2025-05-03 13:50] VITALS: BP 119/71; PULSE 63; RESP 20; TEMP 36.6; O2SAT 97
--- NOTE | 2025-05-03 13:55 | P.ANES_ITS ---
Anesthesia Charges Start Date/Time Anesthesia Start Date: 05/03/25 Anesthesia Start Time: 11:56 Stop Date/Time Anesthesia Stop Date: 05/03/25 Anesthesia Stop Time: 13:51 Coding CPT Codes CPT Codes: ANESTH SURGERY OF SHOULDER - 97756 ([id number]) P3 - PATIENT W/SEVERE SYS DISEASE, QK - FILM SPOOLER 2-4 CNCRNT ANES PROC, QX - SUPERVISOR TRAVEL INFORMATION CENTER SVC W/ MD MED DIRECTION
--- NOTE | 2025-05-03 13:55 | W.ANESCHARGE ---
Anesthesia Charges Start Date/Time Anesthesia Start Date: 05/03/25 Anesthesia Start Time: 11:56 Stop Date/Time Anesthesia Stop Date: 05/03/25 Anesthesia Stop Time: 13:51 Coding CPT Codes CPT Codes: ANESTH SURGERY OF SHOULDER - 41643 ([id number]) P3 - PATIENT W/SEVERE SYS DISEASE, QK - OPTIONS ADVISOR 2-4 CNCRNT ANES PROC, QX - DISH STACKER SVC W/ MD MED DIRECTION
[2025-05-03 14:05] VITALS: BP 120/84; PULSE 51; RESP 20; O2SAT 97
[2025-05-03 14:20] VITALS: BP 110/54; PULSE 51; RESP 20; O2SAT 97
[2025-05-03 14:49] VITALS: BP 104/51; PULSE 51; RESP 20; TEMP 36.7; O2SAT 97
== END 2025-05-03 15:12 | disposition home or self-care (01) ==
PROVIDERS: PCP Family Medicine; Visit Provider Surgery
PROC: (CPT 19301; principal; 2025-05-03 11:45)
PROC: (CPT 19301; 2025-05-03 11:45)
PROC: (CPT 19301; 2025-05-03 11:45)
DX: C50.412 Malignant neoplasm of upper-outer quadrant of left female breast (principal); Z17.0 Estrogen receptor positive status [ER+]; Z17.21 Progesterone receptor positive status; Z17.32 Human epidermal growth factor receptor 2 negative status; Z71.0 Person encountering health services to consult on behalf of another person; Z60.3 Acculturation difficulty
CPT/HCPCS: 19301; 38500; 01610; 10035; 19285; 38792; 76942; 77065; 81025; 88307; 88360; 88377; J2003; T1013; A9270; A9541; C1769; J0665; J0690; J1885; J2250; J2405; J2704; J3010; J7120

== ENCOUNTER 2025-07-01 16:16 | Outpatient (CLI) | payer MEDICAID, SELFPAY ==
--- NOTE | 2025-07-01 16:30 | CRLHL7_ITS ---
For Patients: As a result of the Century Cures Act, medical imaging exams and procedure reports are released immediately into your electronic medical record. You may view this report before your referring provider. If you have questions, please contact your health care provider. CLINICAL HISTORY: Breast cancer. TECHNIQUE: Following IV injection of 26-xhbvvy-4-deoxyglucose (FDG) and a standard uptake period of approximately 60 minutes, a non-contrast CT scan followed by a PET scan were acquired along the length of the body from the mid portion of the head to the mid thighs. The non-contrast CT was used for anatomic localization and photon attenuation correction of the PET scan. Blood Glucose Level (mg/dL): 69 FDG Dose (mCi): 12.1 FINDINGS: Head/Neck: No abnormal activity identified in the head and neck. Chest: No mediastinal or hilar adenopathy. No axillary adenopathy. Postsurgical changes in the lateral aspect of the left breast, SUV max 3.2. The lungs show no focal pulmonary opacities. No pneumothorax. Abdomen/Pelvis: No focal abnormalities identified in the visualized portions of the liver, spleen, pancreas, adrenal glands, and kidneys. No hydronephrosis. The GI tract is incompletely distended but shows no gross abnormalities. No retroperitoneal, pelvic sidewall, or mesenteric adenopathy. Gallstones in a contracted gallbladder. Bones: No abnormal skeletal activity identified. IMPRESSION: 1. Postsurgical changes in the left breast. 2. No metastatic disease identified. Dictated by Jakub Roque MD @ 07/06/2025 7:13:45 AM (Electronically Signed)
== END 2025-07-01 16:17 | disposition home or self-care (01) ==
LOC: RAD 16:19
PROVIDERS: PCP Family Medicine; Visit Provider Internal Medicine Hematology & Oncology
DX: C50.912 Malignant neoplasm of unspecified site of left female breast (principal)
CPT/HCPCS: 78815; T1013; A9552

== ENCOUNTER 2025-07-05 12:56 | Outpatient (CLI) | payer MEDICAID, SELFPAY | END 2025-07-05 12:57 | disposition home or self-care (01) | PROVIDERS: PCP Family Medicine; Visit Provider Internal Medicine Hematology & Oncology | DX: Z51.81 Encounter for therapeutic drug level monitoring (principal); Z79.899 Other long term (current) drug therapy | CPT/HCPCS: 93306; T1013 ==

== ENCOUNTER 2025-07-08 07:24 | Day surgery (SDC) | payer MEDICAID, SELFPAY ==
[2025-07-08] MEDS: LACTATED RINGERS 1000 ML 1,000 ML 100 ML IV (07:35)
[2025-07-08 07:53] VITALS: BP 134/60; PULSE 62; RESP 16; TEMP 36.6; O2SAT 96; BMI 44.3
[2025-07-08] MEDS: SODIUM CHLORIDE 0.9 % (FLUSH) 10 ML SYRINGE IVF (07:58)
--- NOTE | 2025-07-08 08:45 | CRLHL7_ITS ---
For Patients: As a result of the Century Cures Act, medical imaging exams and procedure reports are released immediately into your electronic medical record. You may view this report before your referring provider. If you have questions, please contact your health care provider. Indication: Rani Cath Placement Technique: One fluoroscopic image of the chest. Fluoroscopic time 38 seconds. IMPRESSION: Fluoroscopic guidance for Port-A-Cath placement. Dictated by Dhaval Wong MD @ 07/08/2025 10:04:14 AM (Electronically Signed)
[2025-07-08] MEDS: LIDOCAINE 1% MDV 20 ML INJECTION (09:22)
[2025-07-08] MEDS: BUPIVACAINE 0.5% 30 ML INJECTION (09:22)
[2025-07-08] MEDS: 0.9% SODIUM CHL 50 ML VIAL INJECTION (09:40)
[2025-07-08] MEDS: HEPARIN 500 UNIT/5 ML SYRINGE IVF (09:40)
--- NOTE | 2025-07-08 09:54 | W.PM.H&PU ---
History & Physical Update History & Physical Update H&P Reviewed and patient assessed: No changes noted
--- NOTE | 2025-07-08 09:54 | PM.GSPRC ---
Operative Note Date of procedure: 07/08/25 Pre-op diagnosis: Left-sided breast cancer Post-op diagnosis: Same Type of Procedure: Right IJ power port placement with ultrasound and fluoroscopic guidance Indications: The patient is a 44-year-old female who was found to have a left-sided invasive ductal carcinoma. She underwent lumpectomy and sentinel lymph node biopsy. Oncotype returned with a recurrence score sufficiently elevated that chemotherapy was recommended. Port placement was requested. Procedure Description: After discussing the risks and benefits of the procedure, the patient signed informed consent.? The operative site was marked and the patient was brought to the operating room and placed on the operating table in supine position.? Care was taken to pad the patient's pressure points.?? The patient was then given sedation by anesthesia.?? The operative site was then prepped and draped in the usual sterile fashion.? A time-out was then performed. The patient's right internal jugular vein was visualized using ultrasound. Local anesthetic was injected into the skin overlying the vein. This was accessed percutaneously using ultrasound guidance. Using Seldinger technique, a guidewire was threaded through the needle. A skin marcos was made around the wire. Next, local anesthetic was injected into the skin below the clavicle and along the proposed tract to the neck incision. A skin incision was then made with a 15 blade and a pocket created in the subcutaneous tissue with cautery. A tunneler was then used to thread the catheter from the chest wall pocket to the neck incision. Once this was done fluoroscopy was brought into the field. Over the wire the tract was dilated using fluoroscopy. The wire and the dilator were then removed leaving the sheath in the vein. Through this, the catheter was threaded. Using fluoroscopy, the catheter was positioned into the distal SVC. The catheter was noted to flush and aspirate easily. The catheter was then connected to the port. The port was placed in the pocket and secured in place with 2 0 Prolene sutures. It was noted to flush and aspirate easily. This was then locked with heparinized saline. The skin was closed with absorbable suture. Glue was then applied. Instrument sponge and needle counts were correct at the end of the case. The patient was woken and taken to the PACU in stable condition. ? The patient tolerated the procedure well. Findings: Right IJ power port placed in the low SVC Anesthesia: MAC Surgeon: Yolanda Mac MD Estimated blood loss (mL): 5 Condition: stable Disposition: same day
[2025-07-08 09:57] VITALS: BP 102/60; PULSE 61; RESP 16; TEMP 36.4; O2SAT 97
--- NOTE | 2025-07-08 09:57 | CRLHL7_ITS ---
For Patients: As a result of the Century Cures Act, medical imaging exams and procedure reports are released immediately into your electronic medical record. You may view this report before your referring provider. If you have questions, please contact your health care provider. Indication: Postop Port-A-Cath placement Technique: Chest 1 view Comparison: None Findings/Impression: Cardiovascular and mediastinum: Mild cardiomegaly with right-sided Port-A-Cath with tip at the distal superior vena cava. Lungs and pleural space: Lungs are clear. No sign of infiltrate or mass. No sign of pleural effusion. No pneumothorax. Bones and soft tissues: No acute findings. Dictated by Ignacio Dupree MD @ 07/08/2025 10:27:28 AM (Electronically Signed)
[2025-07-08 10:00] VITALS: BP 101/58; PULSE 55; RESP 16; O2SAT 96
--- NOTE | 2025-07-08 10:01 | P.ANES_ITS ---
Anesthesia Charges Start Date/Time Anesthesia Start Date: 07/08/25 Anesthesia Start Time: 08:54 Stop Date/Time Anesthesia Stop Date: 07/08/25 Anesthesia Stop Time: 10:01 Coding CPT Codes CPT Codes: ANESTH VASCULAR ACCESS - 02353 ([id number]) P3 - PATIENT W/SEVERE SYS DISEASE, QK - DIRECTOR LEARNING 2-4 CNCRNT ANES PROC, QX - INSULATION WORKER APPRENTICE SVC W/ MD MED DIRECTION
--- NOTE | 2025-07-08 10:01 | W.ANESCHARGE ---
Anesthesia Charges Start Date/Time Anesthesia Start Date: 07/08/25 Anesthesia Start Time: 08:54 Stop Date/Time Anesthesia Stop Date: 07/08/25 Anesthesia Stop Time: 10:01 Coding CPT Codes CPT Codes: ANESTH VASCULAR ACCESS - 10905 ([id number]) P3 - PATIENT W/SEVERE SYS DISEASE, QK - HUMAN ANATOMY TEACHER 2-4 CNCRNT ANES PROC, QX - TITLE CLERK SVC W/ MD MED DIRECTION
[2025-07-08 10:15] VITALS: BP 114/81; PULSE 60; RESP 16; O2SAT 100
[2025-07-08] MEDS: ACETAMINOPHEN 325 MG TABLET 650 MG PO (10:15)
--- NOTE | 2025-07-08 11:06 | P.ANES_ITS ---
Anesthesia Charges Start Date/Time Anesthesia Start Date: 07/08/25 Anesthesia Start Time: 08:54 Stop Date/Time Anesthesia Stop Date: 07/08/25 Anesthesia Stop Time: 10:01 Coding CPT Codes CPT Codes: ANESTH VASCULAR ACCESS - 50091 ([id number]) QK - DAIRY AND FOOD LABORATORY ASSISTANT 2-4 CNCRNT ANES PROC, QX - TRUCK HEADLIGHT ASSEMBLER SVC W/ MD MED DIRECTION, P3 - PATIENT W/SEVERE SYS DISEASE
--- NOTE | 2025-07-08 11:06 | W.ANESCHARGE ---
Anesthesia Charges Start Date/Time Anesthesia Start Date: 07/08/25 Anesthesia Start Time: 08:54 Stop Date/Time Anesthesia Stop Date: 07/08/25 Anesthesia Stop Time: 10:01 Coding CPT Codes CPT Codes: ANESTH VASCULAR ACCESS - 15082 ([id number]) QK - TAR KETTLE RUNNER 2-4 CNCRNT ANES PROC, QX - CONTRACT CONSULTANT SVC W/ MD MED DIRECTION, P3 - PATIENT W/SEVERE SYS DISEASE
== END 2025-07-08 10:36 | disposition home or self-care (01) ==
PROVIDERS: PCP Family Medicine; Visit Provider Surgery
PROC: (CPT 36561; principal; 2025-07-08 08:45)
DX: C50.912 Malignant neoplasm of unspecified site of left female breast (principal); Z45.2 Encounter for adjustment and management of vascular access device
CPT/HCPCS: 36561; 00532; 71045; 76000; 76998; J2003; T1013; A9270; C1788; J0665; J0690; J1642; J2250; J2405; J2704; J3010; J3490; J7120

== ENCOUNTER 2025-08-20 08:29 | Outpatient (CLI) | payer MEDICAID, SELFPAY ==
--- NOTE | 2025-08-20 08:45 | CRLHL7_ITS ---
For Patients: As a result of the Cures Act, medical imaging exams and procedure reports are released immediately into your electronic medical record. You may view this report before your referring provider. If you have questions, please contact your health care provider. DIGITAL DIAGNOSTIC RIGHT MAMMOGRAM USING TOMOSYNTHESIS AND COMPUTER-AIDED DETECTION RIGHT BREAST ULTRASOUND CLINICAL HISTORY: RIGHT breast lump. COMPARISON: 03/26/2025, 12/20/2023, 11/29/2023. TECHNIQUE: Digital RIGHT mammogram in two projections. Tomosynthesis and CAD were used in this interpretation. Real-time ultrasound imaging of RIGHT breast with imaging documentation. BREAST COMPOSITION: The breast is heterogeneously dense, which may obscure small masses. FINDINGS: 3D CC/MLO RIGHT breast mammogram images submitted. Nodular density is present without architectural distortion corresponding to the palpable area. No suspicious calcifications. Targeted RIGHT breast ultrasound performed at 1 o`clock 3 cm from the nipple. In this location there is a simple circumscribed anechoic cyst with increased through-transmission which measures 1.8 x 1.2 x 1.7 cm. IMPRESSION: Simple cyst RIGHT breast 1 o`clock 3 cm from the nipple measuring 1.8 cm. No evidence of malignancy. RECOMMENDATIONS: Routine screening mammography. A lay language report of this examination will be provided to the patient. BI-RADS Category 2: Benign Dictated by hDaval Wong MD @ 08/20/2025 9:43:25 AM jj/Dictated by: Dhaval Wong MD @ 08/20/2025 9:43:00 AM (Electronically Signed)
--- NOTE | 2025-08-20 09:15 | CRLHL7_ITS ---
For Patients: As a result of the Cures Act, medical imaging exams and procedure reports are released immediately into your electronic medical record. You may view this report before your referring provider. If you have questions, please contact your health care provider. SEE DIGITAL DIAGNOSTIC RIGHT MAMMOGRAM PERFORMED SAME DAY CRL:[email or web address] thapa/Dictated by: Dhaval Wong MD @ 08/20/2025 9:41:00 AM (Electronically Signed)
== END 2025-08-20 08:30 | disposition home or self-care (01) ==
LOC: MAMMO 08:30
PROVIDERS: PCP Family Medicine; Visit Provider Clinical Nurse Specialist
DX: N63.10 Unspecified lump in the right breast, unspecified quadrant (principal); N60.01 Solitary cyst of right breast; C50.912 Malignant neoplasm of unspecified site of left female breast
CPT/HCPCS: 76642; 77065; T1013; G0279